=== PATIENT | male | born 1985 | race Caucasian/White ===

== ENCOUNTER → 2018-10-24 09:48 | Outpatient (POV) | payer BC, SELFPAY | PROVIDERS: Visit Provider Dermatology | DX: Z00.00 Encounter for general adult medical examination without abnormal findings (principal) ==

== ENCOUNTER → 2019-10-23 08:17 | Outpatient (POV) | payer BC, SELFPAY | PROVIDERS: Visit Provider Dermatology | DX: Z00.00 Encounter for general adult medical examination without abnormal findings (principal) ==

== ENCOUNTER → 2021-05-11 12:16 | Outpatient (CLI) | payer BC, SELFPAY ==
--- NOTE | 2021-05-11 12:23 | CT_ITS ---
PROCEDURE: CT ABDOMEN PELVIS W CON CLINICAL INDICATION: LT LOWER QUADRANT PAIN..HX DIVERTICULIS OF COLON Diverticulitis COMPARISON: CT ABDPELW/O CT ABD PELVIS W/O CONTRAST from 11/30/2016 TECHNIQUE: IV Contrast: 75ML Isovue 370 Oral Contrast None Axial images obtained with sagittal and coronal reformats. All CT scans at the facility use one or more dose reduction, viz: automated exposure control, ma/kV adjustment per patient size (including targeted exams where dose is matched to indication, i.e. head), or iterative reconstruction technique. FINDINGS: LOWER THORAX: No acute finding ABDOMEN & PELVIS: The liver, gallbladder, adrenal glands, pancreas, and kidneys have an unremarkable appearance. There is mild splenomegaly at 14 cm. No evidence of appendicitis. The tip of the appendix is slightly thickened but there is no stranding of the periappendiceal fat and no significant change. Diverticulosis involves the descending colon. There is thickening of the distal descending colon and proximal sigmoid colon with mild stranding of the pericolic fat consistent with acute diverticulitis. There is no abscess or free air apparent. There is thickening of the lateral conal fascia inferiorly on the left. There is a small amount fluid within the right lower quadrant nonspecific. No acute bony findings. Sclerotic focus is present in the left acetabular roof consistent with a bone island. Mild lumbar scoliosis convex left. IMPRESSION: Acute diverticulitis at the junction of the descending and sigmoid colon without evidence of abscess or perforation Dictated by: Kuldeep Storm MD 05/11/2021 15:34 Kuldeep Storm MD in [facility] 05/11/2021 15:34
== END ==
PROVIDERS: PCP Physician Assistant; Visit Provider Physician Assistant
DX: R10.32 Left lower quadrant pain (principal); Z87.19 Personal history of other diseases of the digestive system
CPT/HCPCS: 74177; Q9967